=== PATIENT | male | born 1985 | race African-American/Black ===

== ENCOUNTER 2019-05-10 21:15 | Emergency (ER) | payer SELFPAY ==
[~2019-05-10] VITALS: Ht 172.7 cm; Wt 84.4 kg
[2019-05-10 21:24] VITALS: Ht 172.7 cm; Wt 84.4 kg
[2019-05-10 22:28] VITALS: BP 128/71
== END 2019-05-10 22:28 | disposition home or self-care (01) ==
LOC: ED 21:15
DX: K02.9 Dental caries, unspecified (principal)
CPT/HCPCS: J1885